=== PATIENT | female | born 1945 | race Caucasian/White ===

== ENCOUNTER 2025-02-26 09:46 | Outpatient (CLI) | payer MEDICARE, BC ==
[~2025-02-26] VITALS: Ht 159.4 cm; Wt 72.6 kg
[2025-02-26 10:17] LABS: TOTAL HEMOGLOBIN 10.4 G/dl (12.0-16.0)
[2025-02-26] MEDS: albuterol 2.5 MG/3 ML nebule NEB ONE (11:09)
[2025-02-26 11:14] VITALS: PULSE 92; RESP 18; O2SAT 89
[2025-02-26 11:29] VITALS: PULSE 80; RESP 18
--- NOTE | 2025-02-27 16:02 | PROCEDURE NOTE - Respiratory ---
Procedure Note-Respiratory Providers to CC Copies To 1: IRENE CAMEJO MD; JI DON MD Procedure Name: This is a complete pulmonary function study dated February 26, 2025. Hemoglobin measurement was obtained as part of the study. Spirometry measurements: There is significant reduction in both the forced v ital capacity and the FEV1. The FEV1 ratio is also severely reduced. All of the measured flow rates show significant reduction. After inhaled bronchodilator was administered there is only very minimal improvement in some of the flow rate measurements. Spirometry documents severe obstructive ventilatory defect. Lung volume measurements: The total lung capacity is mildly elevated. There is elevation in the functional residual capacity and the residual volume measurements as well. These findings suggest hyperinflation with gas trapping within the lungs. Lung diffusion measurement: The DLCO measurement is severely reduced. Both the KVO measurement as well as the alveolar volume measurements show reduction. It is noted that the hemoglobin measurement shows anemia with hemoglobin measuring at 10.4 grams/deciliter. Airway resistance measurement: The airway resistance is substantially elevated. Conclusion: This study shows severe abnormality. There is evidence for severe obstructive ventilatory defect. The patient is hyperinflated with air trapping within the lungs. These findings together with a very low DLCO measurements suggests the presence of emphysema. These findings are consistent with the patient's diagnosis of smoking related COPD. This patient should use regular daily doses of bronchodilator medication. We have no previous studies for comparison. We also note this patient has mild anemia. JI DON MD Feb 27, 2025 16:02
== END 2025-02-26 23:59 | disposition home or self-care (01) ==
LOC: RT 09:46
PROVIDERS: ATTEND Internal Medicine Pulmonary Disease
DX: J44.9 Chronic obstructive pulmonary disease, unspecified (principal)
CPT/HCPCS: 85018; 94060; 94727; 94729; 94760